=== PATIENT | male | born 1985 | race Caucasian/White ===

== ENCOUNTER 2024-10-14 17:37 | Emergency (ER) | payer OTHER, SELFPAY ==
[2024-10-14] VITALS (9 sets, daily range): BP systolic 100–136; BP diastolic 80–90; PULSE 62–68; BMI 34.3
[2024-10-14 17:55] LABS: Glucose - Point of Care 142 mg/dl (70-99)
[2024-10-14 17:58] LABS: % Basophils 1.5 % (0-2); % Eosinophils 5.6 % (0-6); % Immature Granulocytes 0.3 % (0-0.5); % Lymphocytes 38.3 % (20.5-51.1); % Monocytes 7.7 % (1.7-9.3); % Neutrophils 46.6 % (42.2-75.2); Absolute Basophils 0.1 10^3/uL (0-0.2); Absolute Eosinophils 0.4 10^3/uL (0-0.7); Absolute Monocytes 0.6 10^3/uL (0.1-0.6); Absolute Neutrophils 3.6 10^3/uL (1.4-6.5); Hemoglobin 15.7 g/dL (13.0-18.0); Mean Corp Hgb Conc. 35.7 g/dL (33.0-37.0); Mean Corpuscular Hgb 29.6 pg (27.0-31.0); Mean Corpuscular Volume 82.9 fL (80.0-94.0); Mean Platelet Volume 10.1 fL (7.4-10.4); Nucleated Red Blood Cells % 0 % (-); Platelet Count 269 10^3/uL (130-400); Red Blood Cell Count 5.31 10^6/uL (4.70-6.10); Red Cell Dist. Width 13.2 % (11.5-14.5); White Blood Cell Count 7.8 10^3/uL (4.8-10.8)
[2024-10-14 18:18] LABS: ALT (SGPT) 116 U/L (0-50); AST (SGOT) 97 U/L (17-59); Albumin 4.5 g/dl (3.5-5.0); Alkaline Phosphatase 87 U/L (38-126); Blood Urea Nitrogen 17 mg/dl (9-20); Calcium 9.7 mg/dl (8.4-10.2); Carbon Dioxide 26 mmol/L (22-30); Chloride 105 mmol/L (98-107); Glucose 169 mg/dl (70-99); Potassium 4.6 mmol/L (3.5-5.1); Sodium 141 mmol/L (135-145); Total Bilirubin 1.5 mg/dl (0.2-1.3); Total Protein 7.5 g/dl (6.3-8.2); eGFR > 60.00
--- NOTE | 2024-10-14 21:43 | ED.GENMED ---
History of Present Illness
General
Chief Complaint: Fainting Sensation
Source: patient
Exam Limitations: none
Time Seen by Provider: 10/14/24 21:10
Nursing documentation reviewed up to this point in time: agreed with
History of Present Illness
History of Present Illness:
Patient is a 39-year-old male who presents to the ER for evaluation. pt reports after work today he felt very tired. He came home around 4 PM and took a nap to 4:45 PM he will he felt very lightheaded like he was going to pass out. He reports he
felt tingling around both of his eyes and all over his lips. He sat down and had some chocolate milk just in case his blood sugar was low. He does have a history of anxiety and is on propranolol for anxiety. He started to feel anxious with
symptoms and did take a dose of his propranolol. He had no associated chest pain or shortness of breath.
Patient reports recently he saw make up arranger, yesterday. He reports he had intermittent palpitations since having COVID in June. He wore Holter monitor for 2 weeks and had a negative stress test.
Patient reports he does have a history of elevated LFTs from possible fatty liver.
Patient did fast 48 hour however fasting ended last night at dinner. he did eat dinner last night and ate breakfast and lunch today.
Review of Systems
Review of Systems
Allergies reviewed?: Yes
All Other Systems: ROS reviewed and negative except as documented in HPI and ROS
Constitutional: Reports no symptoms; Denies fever, fatigue or chills
Respiratory: Reports no symptoms; Denies trouble breathing
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
ABD/GI: Reports no symptoms; Denies abdominal pain, nausea or vomiting
: Reports no symptoms
Musculoskeletal: Reports no symptoms
Skin: Reports no symptoms
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
Psychiatric: Reports no symptoms
Phy Exam
General Physical Exam
General Presentation: no apparent distress
General age: appears stated age
General Skin: warm and dry
General Habitus: normal
General Mental: alert
General Hydration: appears well hydrated
Cardiovascular Exam
Cardiovascular Exam: regular rate/rhythm, no murmur and normal peripheral pulses
Pulmonary Exam
Pulmonary Exam: lungs clear and no respiratory distress
Neurological Exam
Neurological Exam: alert, oriented x3, no motor deficits and no sensory deficits
[place] Coma Scale
Eye Opening: Spontaneous
Verbal Response: Oriented
Motor Response: Obeys Commands
GCS Total Score: 15
Cerebellar
Cerebellar Function: normal finger to nose
Musculoskeletal Exam
Musculoskeletal Exam: full ROM
Skin Exam
Skin Exam: normal color and warm/dry
Psychiatric Exam
Psychiatric Exam: normal mood/affect
Course
Orders/Labs/Results
Orders:
Orders
10/14/24 17:38
Electrocardiogram (*1) Urgent
Reason for Study: Syncope
EKG- Treatment ONCE
10/14/24 17:44
EKG [Electrocardiogram (*1)] Urgent
Reason for Study: Vertigo / Dizzy
EKG- Treatment ONCE
10/14/24 17:52
CMP [Comprehensive Metabolic Panel] Urgent
Complete Blood Count/With Diff Urgent
TSH Reflex To Free T4 Urgent
Comment: ADD ON
10/14/24 22:06
Add On- LAB Urgent
Tests Added?: tsh with reflexive t4
Orthostatic VS- Treatment ONCE
Abnormal Lab Results
10/14/24
17:52
Glucose 169 H mg/dl
(70-99)
Total Bilirubin 1.5 H mg/dl
(0.2-1.3)
AST 97 H U/L
(17-59)
ALT 116 H U/L
(0-50)
POC Glucose 142 H mg/dl
(70-99)
10/14/24 17:52
10/14/24 17:52
Vital Signs
Initial and Last Documented VS:
Initial Vital Signs
Temp Pulse Resp BP Pulse Ox
97.4 F 83 18 136/90 100
10/14/24 17:38 10/14/24 17:38 10/14/24 17:38 10/14/24 17:38 10/14/24 17:38
Last Documented Vital Signs
Temp Pulse Resp BP Pulse Ox
97.4 F 64 22 120/84 97
10/14/24 17:38 10/14/24 22:00 10/14/24 22:00 10/14/24 22:00 10/14/24 22:00
Atg Java Developer consulted with Physician
Atg Java Developer consulted with physician?: Yes
Name of Physician Consulted: Noh
MDM/Problems Addressed
MDM/Problems Addressed:
As documented patient is a 39-year male who presented to the ER for an episode of near syncope. He felt dizzy around 4:45 PM after waking up from a nap. He describes feeling tingling to his face around both of his eyes in both his upper and lower
right and left lips. He did become anxious over the symptom and did take propranolol. He presents awake alert no acute distress nontachycardic. He had no associated chest pain with symptoms. He recently saw make up arranger yesterday and had a
2-week Holter monitor and a nuclear stress test both of which were negative. He saw cardiology because of palpitations he was having since having COVID in June.
He presents awake alert no acute distress. He has had elevated LFTs in the past related to fatty liver and they are again elevated he is aware of this.
he has no neurological deficits. No acute concerning symptoms however will d/c w/ outpt f/u by his pcp and also instructed pt to follow back up with his make up arranger.
*Critical Care Note
Total Time (30-74mins, 75-104mins- exclusive of procedures): Not Applicable
ED Attending Note
-
Portions of this chart may have been created with voice recognition software.� Occasional wrong word or��sound alike� substitutions may have occurred due to the inherent limitations of voice recognition software.
Discharge Plan
Departure
Patient Disposition: Home (Routine Discharge)
Date of Disposition: 10/14/24
Time of Disposition: 22:53
Patient with high blood pressure during this ER visit?: Yes
Condition: Fair
Covid-19: Not Applicable
Discharge Problem:
Near syncope
Instructions: Near Fainting (DC), BLOOD PRESSURE
Referrals:
Vasquez Olsen DO [Family Provider] -
Activity Restrictions/Additional Instructions:
As discussed stay well-hydrated. Follow-up with your Family doctor as well as your make up arranger.
Please call Thursday to make an appointment soon as possible. Return if any worsening of symptoms.
Interventions
Interventions:
*General Assessment Last Done: 10/14/24 20:57
*ED COVID-19 Vaccine History Last Done: 10/14/24 17:38
ED- Cardiac Assessment Last Done: 10/14/24 20:57
ED- Neurological Assessment Last Done: 10/14/24 20:57
Discharge Date and Time
Print Language: SUDANESE
[2024-10-14 22:11] LABS: Glucose - Point of Care 94 mg/dl (70-99)
[2024-10-14 23:43] LABS: TSH Reflex To Free T4 2.89 uIU/ml (0.47-4.68)
== END 2024-10-14 23:11 | disposition home or self-care (01) ==
LOC: EMR 17:37
PROVIDERS: Student in an Organized Health Care Education/Training Program; EMERGENCY PHYSICIAN Emergency Medicine; FAMILY PHYSICIAN Internal Medicine
DX: R55 Syncope and collapse (principal); R03.0 Elevated blood-pressure reading, without diagnosis of hypertension
CPT/HCPCS: 99284; 80053; 82962; 84443; 85025; 93005

== ENCOUNTER → 2024-10-19 08:51 | Outpatient (REF) | payer OTHER, SELFPAY ==
[2024-10-19 10:06] LABS: Urine Albumin Negative (Neg - Trace); Urine Bilirubin Negative (Negative); Urine Character Clear (Clear); Urine Color Yellow; Urine Glucose Negative (Negative); Urine Ketone Negative (Negative); Urine Leukocyte Negative (Negative); Urine Nitrite Negative (Negative); Urine Occult Blood Negative (Negative); Urine Urobilinogen Negative (Neg - 1+); Urine pH 6.5 (5.0-9.0)
[2024-10-19 10:58] LABS: % Eosinophils 5.2 % (0-6); % Immature Granulocytes 0.2 % (0-0.5); % Lymphocytes 36.8 % (20.5-51.1); % Monocytes 5.7 % (1.7-9.3); % Neutrophils 51.1 % (42.2-75.2); Absolute Basophils 0.1 10^3/uL (0-0.2); Absolute Eosinophils 0.3 10^3/uL (0-0.7); Absolute Lymphocytes 2.2 10^3/uL (1.2-3.4); Absolute Monocytes 0.3 10^3/uL (0.1-0.6); Hematocrit 46.7 % (39.0-52.0); Hemoglobin 15.5 g/dL (13.0-18.0); Mean Corp Hgb Conc. 33.2 g/dL (33.0-37.0); Mean Corpuscular Hgb 28.6 pg (27.0-31.0); Mean Corpuscular Volume 86.2 fL (80.0-94.0); Mean Platelet Volume 10.8 fL (7.4-10.4); Nucleated Red Blood Cells % 0 % (-); Platelet Count 251 10^3/uL (130-400); Red Blood Cell Count 5.42 10^6/uL (4.70-6.10); Red Cell Dist. Width 13.3 % (11.5-14.5)
[2024-10-19 11:47] LABS: ALT (SGPT) 79 U/L (0-50); AST (SGOT) 36 U/L (17-59); Albumin 4.5 g/dl (3.5-5.0); Alkaline Phosphatase 72 U/L (38-126); Blood Urea Nitrogen 14 mg/dl (9-20); Calcium 9.7 mg/dl (8.4-10.2); Carbon Dioxide 30 mmol/L (22-30); Chloride 105 mmol/L (98-107); Glucose 92 mg/dl (70-99); HDL Cholesterol 41 mg/dl; LDL Cholesterol, Calculated 121 mg/dl; Potassium 4.5 mmol/L (3.5-5.1); Sodium 143 mmol/L (135-145); Total Bilirubin 1.5 mg/dl (0.2-1.3); Total Cholesterol 183 mg/dl (50-199); Total Protein 7.4 g/dl (6.3-8.2); Triglyceride 108 mg/dl (10-149); Very Low Density Lipoprotein 21 mg/dl (0-30); eGFR > 60.00
[2024-10-19 12:10] LABS: TSH Reflex To Free T4 1.13 uIU/ml (0.47-4.68)
== END ==
LOC: REG 08:51
PROVIDERS: ATTENDING PHYSICIAN Nurse Practitioner Family; FAMILY PHYSICIAN Internal Medicine
DX: Z76.89 Persons encountering health services in other specified circumstances (principal); F41.9 Anxiety disorder, unspecified; Z87.898 Personal history of other specified conditions; Z01.89 Encounter for other specified special examinations; R03.0 Elevated blood-pressure reading, without diagnosis of hypertension
CPT/HCPCS: 36415; 80053; 80061; 81003; 84443; 85025